=== PATIENT | male | born 1930 | race Caucasian/White ===

== ENCOUNTER 2017-09-21 11:10 | Emergency (ER) | payer MEDICARE ==
[~2017-09-21] VITALS: Ht 177.8 cm; Wt 90.0 kg
[~2017-09-21 11:10] MED LIST: ANUCORT-HC25 MG RE; ASPIRIN EC81 MG PO; ATENOLOL25 MG PO; BENICAR20 MG PO; CALCIU PO; CARVEDILOL3.125 MG PO; CORDARONE/200 MG/TAB PO; FUROSEMIDE20 MG PO; LEVOTHYROXIN50 MCG PO; LISINOPRIL2.5 MG PO; METOPROL TAR25 MG PO; OMEPRAZOLE10 MG PO; PRADAXA150 MG PO; SIMVASTATIN40 MG PO; VITAMIN C500 M6 PO; VITAMIN D32000 UNI2 PO; ZOCOR10 MG PO
[2017-09-21] MEDS ORDERED: LORTAB 5/3255 MG PO (12:33)
[2017-09-21 12:47] VITALS: BP 123/75
== END 2017-09-21 13:03 | disposition home or self-care (01) ==
LOC: ED 11:10
DX: S82.102A Unspecified fracture of upper end of left tibia, initial encounter for closed fracture (principal); S82.832A Other fracture of upper and lower end of left fibula, initial encounter for closed fracture; I25.10 Atherosclerotic heart disease of native coronary artery without angina pectoris; W10.9XXA Fall (on) (from) unspecified stairs and steps, initial encounter; Y92.009 Unspecified place in unspecified non-institutional (private) residence as the place of occurrence of the external cause; Z95.810 Presence of automatic (implantable) cardiac defibrillator
CPT/HCPCS: L1830

== ENCOUNTER 2017-09-23 20:48 | Emergency (ER) | payer MEDICARE ==
[~2017-09-23] VITALS: Ht 177.8 cm; Wt 90.9 kg
[~2017-09-23 20:48] MED LIST changes: +LORTAB 5/3255 MG PO
[2017-09-23 22:52] LABS: IMMATURE GRANULOCYTES 0.5 % (0.0-1.0); MEAN CELL VOLUME 99.2 fL CALC (80.0-100.0); MEAN CORPUSCULAR HGB CONC 34.3 g/L CALC (32.0-36.0); NEUT# 5.52 thou/uL (1.82-7.42); RED BLOOD COUNT 3.91 mill/uL (4.70-6.10); RED CELL DISTRI WIDTH 12.8 % (11.5-15.5)
[2017-09-23 22:53] LABS: HEMATOCRIT 38.8 % (39.0-50.0); HEMOGLOBIN 13.3 g/dl (14.0-18.0)
[2017-09-23 23:10] LABS: ALBUMIN 3.9 g/dL (3.2-5.0); ALKALINE PHOSPHATASE 57 u/l (38-126); ANION GAP 17 (6-22 (CALC)); BILIRUBIN, TOTAL 0.7 mg/dL (0.0-1.4); BUN 23 mg/dL (8-23); BUN/CREATININE RATIO 19 (12-20 (CALC)); CARBON DIOXIDE 26 mmol/l (22-30); CHLORIDE 99 mmol/l (95-108); CREATININE 1.3 mg/dL (0.7-1.3); GFR 52 ML/MIN (>=60 (CALC)); GFR FOR AFR.AMER. > 60 ML/MIN (>=60 (CALC)); POTASSIUM 4.2 mmol/l (3.5-5.1); SGOT/AST 31 u/l (19-48); SGPT/ALT 26 u/l (11-66); SODIUM 138 mmol/l (137-146); TOTAL PROTEIN 6.7 g/dL (6.3-8.2)
[2017-09-24 00:50] VITALS: BP 113/66
== END 2017-09-24 00:54 | disposition short-term general hospital (02) ==
LOC: ED 20:48
PROVIDERS: Emergency Medicine
DX: S82.102D Unspecified fracture of upper end of left tibia, subsequent encounter for closed fracture with routine healing (principal); S82.832D Other fracture of upper and lower end of left fibula, subsequent encounter for closed fracture with routine healing; M25.462 Effusion, left knee; M79.605 Pain in left leg; Z91.81 History of falling

== ENCOUNTER → 2018-10-05 | Outpatient (REF) | payer MEDICARE | END | disposition home or self-care (01) | LOC: LAB 09:23 | DX: N18.3 Chronic kidney disease, stage 3 (moderate) (principal); I10 Essential (primary) hypertension; I25.10 Atherosclerotic heart disease of native coronary artery without angina pectoris; R06.02 Shortness of breath; I42.8 Other cardiomyopathies ==